=== PATIENT | female | born 1995 | race Caucasian/White ===

== ENCOUNTER 2024-06-16 10:58 | Emergency (ER) | payer MEDICAID, OTHER ==
[~2024-06-16] VITALS: Ht 165.1 cm; Wt 95.3 kg
[2024-06-16] MEDS ORDERED: FAMO10TA94 PO (11:11)
[2024-06-16] MEDS ORDERED: KETOROLAC TROMETHAMINE 15 MG INJ ONE (11:35)
[2024-06-16] MEDS ORDERED: METOCLOPRAMIDE HCL 10 MG/2 ML VIAL ONE (11:36)
[2024-06-16 11:40] LABS: BASOPHILS % (AUTO) 0.5 % (0.0-2.0); EOSINOPHILS # (AUTO) 0.1 K/uL (0.0-0.7); EOSINOPHILS % (AUTO) 0.9 % (0.0-7.0); HEMATOCRIT 39.6 % (31.2-41.9); HEMOGLOBIN 12.9 g/dL (10.9-14.3); LYMPHOCYTES # (AUTO) 2.1 K/uL (0.8-4.8); LYMPHOCYTES % (AUTO) 23.3 % (20.5-51.5); MEAN CORPUSCULAR HEMOGLOBIN 28.1 uug (24.7-32.8); MEAN CORPUSCULAR HGB CONC 33 g/dL (32.3-35.6); MONOCYTES # (AUTO) 0.6 K/uL (0.1-1.30); MONOCYTES % (AUTO) 6.4 % (0.0-11.0); NEUTROPHILS # (AUTO) 6.1 K/uL (1.8-8.9); NEUTROPHILS % (AUTO) 68.9 % (38.5-71.5); PLATELET COUNT (AUTO) 405 K/uL (179-408); RED CELL DISTRIBUTION WIDTH 13.8 % (12.3-17.7); WHITE BLOOD COUNT (AUTO) 8.8 K/uL (3.8-11.8)
[2024-06-16 11:42] LABS: DIFFERENTIAL COMMENT 1
[2024-06-16] MEDS: KETOROLAC TROMETHAMINE 15 MG INJ IVP ONE (11:44)
[2024-06-16] MEDS: METOCLOPRAMIDE HCL 10 MG/2 ML VIAL IV ONE (11:44)
[2024-06-16 11:46] LABS: CALCIUM 9.4 mg/dL (8.5-10.1); CARBON DIOXIDE 28 mmol/L (21-32); CHLORIDE 104 mmol/L (98-107); CREATININE 0.7 mg/dL (0.6-1.3); GLUCOSE 114 mg/dL (74-106); POTASSIUM 3.9 mmol/L (3.5-5.1); SODIUM SERUM 141 mmol/L (136-145); UREA NITROGEN, BLOOD 9 mg/dL (7-18)
[2024-06-16 11:47] LABS: *BILIRUBIN,URIN NEGATIVE (NEGATIVE); *CLARITY,URINE CLEAR (CLEAR); *COLOR,URINE YELLOW (YELLOW); *KETONES,URINE NEGATIVE (NEGATIVE); *PROTEIN,URINE NEGATIVE (NEGATIVE); *UROBILINOGEN,URINE 0.2 E.U./dl (NORMAL); LEUKOCYTE ESTERASE ,URINE NEGATIVE (NEGATIVE); NITRITE, URINE NEGATIVE (NEGATIVE); UGLUCOSE NEGATIVE (NEGATIVE)
[2024-06-16 11:48] LABS: *BLOOD, URINE TRACE (NEGATIVE); BACTERIA,URINE FEW /HPF (NONE SEEN); SQUAMOUS EPITHELIAL CELL,UR FEW /HPF (NONE SEEN); WBC,URINE 0-3 /HPF (0-3)
[2024-06-16 11:49] LABS: *URINE HCG, QUAL NEGATIVE (NEGATIVE)
[2024-06-16 11:54] LABS: ALANINE AMINOTRANSFERASE 35 U/L (14-59); ALBUMIN 3.7 g/dL (3.4-5.0); ALKALINE PHOSPHATASE 92 U/L (50-136); ASPARTATE AMINOTRANSFERASE 12 U/L (15-37); BILIRUBIN,DIRECT 0.1 mg/dL (0.0-0.2); BILIRUBIN,TOTAL 0.3 mg/dL (0.2-1.0); LIPASE 36 U/L (16-77); TOTAL PROTEIN, SERUM 7.6 g/dL (6.4-8.2)
[2024-06-16] MEDS ORDERED: IBUP-1957 PO (13:18)
[2024-06-16] MEDS ORDERED: METO-295 PO (13:18)
[2024-06-16 13:41] VITALS: BP 132/83; O2SAT 99
== END 2024-06-16 13:42 | disposition home or self-care (01) ==
LOC: ER 10:58
DX: K82.9 Disease of gallbladder, unspecified (principal); R91.8 Other nonspecific abnormal finding of lung field; R10.2 Pelvic and perineal pain; K21.9 Gastro-esophageal reflux disease without esophagitis; Z79.899 Other long term (current) drug therapy
CPT/HCPCS: 99285; 74176; 96374; 76705; 96375; 80076; 80048; 81001; 84703; 83690; 85025; 85730; 84484; 36415; 93005; J1885; J2765; A4606; A4663